=== PATIENT | male | born 1950 | race Caucasian/White ===

== ENCOUNTER 2018-01-10 06:11 | Emergency (ER) | payer BC ==
[2018-01-10 06:27] VITALS: BP 163/105
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
== END 2018-01-10 06:35 | disposition left against medical advice (07) ==
LOC: MW.ED 06:11
DX: Z53.20 Procedure and treatment not carried out because of patient's decision for unspecified reasons (principal)
CPT/HCPCS: 99283